=== PATIENT | female | born 1990 | race Caucasian/White ===

== ENCOUNTER → 2020-04-13 | Outpatient (REF) ==
--- NOTE | 2020-04-14 02:28 | REP ---
INDICATION: EMPLOYEE [employer] COMPARISON: None. TECHNIQUE: PA and lateral. FINDINGS: The mediastinum and cardiac silhouette are normal. The lung jewell are clear and without acute consolidation, effusion, or pneumothorax. The skeletal structures are intact and normal. IMPRESSION: No acute cardiopulmonary process. <Electronically signed by James Hull > 04/14/20 0224
== END ==
LOC: M LAB 12:23
PROVIDERS: ATTEND Nurse Practitioner Adult Health
DX: Z11.52 Encounter for screening for COVID-19 (principal)

== ENCOUNTER → 2020-04-20 | Outpatient (REF) | LOC: M LAB 09:57 | PROVIDERS: ATTEND Nurse Practitioner Adult Health | DX: Z00.00 Encounter for general adult medical examination without abnormal findings (principal) ==

== ENCOUNTER → 2021-01-01 | Outpatient (REF) | LOC: M EMP 13:58 | PROVIDERS: ATTEND Family Medicine | DX: Z20.822 Contact with and (suspected) exposure to COVID-19 (principal) ==

== ENCOUNTER 2024-10-26 20:51 | Emergency (ER) | payer OTHER ==
[~2024-10-26] VITALS: Ht 162.6 cm; Wt 54.6 kg
[2024-10-26 20:53] VITALS: BP 119/57; TEMP 98.4; O2SAT 100
[2024-10-26] MEDS ORDERED: GNP28TAB2 PO (20:55)
[2024-10-26 22:08] LABS: BASO # 0.0 10^3/uL (0.0-0.2); BASO % 0.5 % (0.0-1.0); EOS # 0.1 10^3/uL (0.0-0.5); EOS % 0.8 % (0.0-3.0); LYMPH # 2.0 10^3/uL (1.5-5.0); LYMPH % 34.5 % (24.0-44.0); MONO # 0.5 10^3/uL (0.0-0.8); MONO % 8.7 % (2.0-8.0); NEUTROPHILS # 3.3 10^3/uL (1.5-8.5); NEUTROPHILS % 55.2 % (36.0-66.0); PLATELET COUNT, AUTOMATED 205 10^3/uL (150-450)
== END 2024-10-27 00:06 | disposition home or self-care (01) ==
LOC: M ED 20:51
DX: O02.1 Missed abortion (principal); N83.12 Corpus luteum cyst of left ovary; Z79.899 Other long term (current) drug therapy